=== PATIENT | female | born 1980 | race Hispanic/Latino ===

== ENCOUNTER 2025-06-24 09:40 | Emergency (ER) | payer OTHER ==
[~2025-06-24] VITALS: Ht 154.9 cm; Wt 82.6 kg
[2025-06-24 09:54] VITALS: RESP 17; TEMP 97.5
[2025-06-24 10:30] VITALS: PULSE 88; O2SAT 95
[2025-06-24] MEDS ORDERED: METHOCARBAMOL750 MG PO (10:48)
[2025-06-24] MEDS: KETOROLAC TROMETHAMINE 30 MG/ML VIAL IM STA (10:59)
== END 2025-06-24 10:59 | disposition home or self-care (01) ==
LOC: ER 09:45
DX: M62.838 Other muscle spasm (principal); D64.9 Anemia, unspecified
CPT/HCPCS: 99283; J1885